=== PATIENT | female | born 1990 | race Caucasian/White ===

== ENCOUNTER 2021-01-06 12:08 | Observation (INO) ==
[2021-01-06 15:22] LABS: Candida DNA Not Detected (Not Detect); Gardnerella DNA Not Detected (Not Detect); Trichomonas DNA Not Detected (Not Detect)
== END 2021-01-06 14:40 | disposition home or self-care (01) ==
LOC: 1NENULAB
PROVIDERS: ADMIT Registered Nurse; ATTEND Registered Nurse

== ENCOUNTER 2021-01-08 21:54 | Inpatient (IN) ==
[2021-01-08] MEDS ORDERED: Metoclopramide 10 MG/2 ML VIAL IVP PRN (22:21)
[2021-01-08] MEDS ORDERED: Famotidine 20 MG/2 ML VIAL IVP PRN (22:21)
[2021-01-08] MEDS ORDERED: Naloxone 0.4 MG/ML INJ IVP PRN (22:21)
[2021-01-08 22:54] LABS: Basophils % 0.3 %; Eosinophils # 0.1 K/mcL (0.0-0.6); Hemoglobin 10.8 g/dL (11.5-15.4); Immature Granulocytes % 0.7 % (0-4); Lymphocytes % 17.6 %; Mean Corpuscular HGB Conc 34.8 g/dL (31.6-35.5); Mean Corpuscular Hemoglobin 32.2 pg (28.0-33.3); Mean Corpuscular Volume 92.5 fL (83.0-100.0); Mean Platelet Volume 12.1 fL (9.4-12.4); Monocytes # 0.9 K/mcL (0.0-1.3); Monocytes % 7.8 %; Neutrophils # 8.4 K/mcL (1.6-8.9); Platelet Count 149 K/mcL (140-400); Red Blood Count 3.35 M/mcL (3.82-4.97); Red Cell Distribution Width 12.9 % (11.5-14.5); Segmented Neutrophils % 72.6 %; White Blood Count 11.6 K/mcL (4.3-11.1)
[2021-01-08] MEDS ORDERED: miSOPROStoL 25 MCG TABLET PO PRN (23:26)
[2021-01-08 23:29] LABS: Amphetamine Screen,Urine Negative ng/mL (Cutoff=1000); Barbiturate Screen,Urine Negative ng/mL (Cutoff=200); Benzodiazepines Screen,Urine Negative ng/mL (Cutoff=200); Cannabinoid Screen,Urine Negative ng/mL (Cutoff = 50); Cocaine Screen,Urine Negative ng/mL (Cutoff= 300); Opiate Screen,Urine Negative ng/mL (Cutoff=300); Phencyclidine Screen,Urine Negative ng/mL (Cutoff=25)
[2021-01-08] MEDS ORDERED: Oxytocin 20 units/ LR 1000 mL 20 UNIT/1,000 ML BAG IVC SCH (23:30)
[2021-01-08] MEDS: Ringers Solution, Lactated 1,000 ML IVC SCH (23:45)
[2021-01-09 03:49] LABS: Influenza A PCR Negative (Negative); Influenza B PCR Negative (Negative); Resp. Syncytial Virus PCR Negative (Negative); SARS-CoV-2 by PCR (In House) Negative (Negative)
[2021-01-09] MEDS ORDERED: *HR* Nalbuphine 10 MG/ML AMPUL IV PRN (07:49)
[2021-01-09] MEDS: Ringers Solution, Lactated 1,000 ML IVC SCH ×2 (07:58→10:09)
[2021-01-09] MEDS ORDERED: *HR* FentaNYL (PF) 100 MCG/2 ML VIAL ONE (09:47)
[2021-01-09] MEDS ORDERED: Ropivacaine/PF 0.2% 20 ML VIAL ONE (09:47)
[2021-01-09] MEDS ORDERED: Epidural Premix (fent/bupiv) 110 ML EP ONE (09:49)
[2021-01-09] MEDS ORDERED: EPHEDrine 50 MG/ML VIAL IVP PRN (10:28)
[2021-01-09] MEDS ORDERED: Epidural Premix (fent/bupiv) 110 ML EP SCH (10:30)
[2021-01-09] MEDS ORDERED: Oxytocin 20 units/ LR 1000 mL 20 UNIT/1,000 ML BAG IVC SCH (15:36)
[2021-01-09] MEDS ORDERED: Acetaminophen 325 MG TABLET PO SCH (15:36)
[2021-01-09] MEDS ORDERED: Ondansetron ODT 4 MG TAB.RAPDIS SL PRN (15:36)
[2021-01-09] MEDS ORDERED: Lanolin 7 G OINT...G. TP PRN (15:36)
[2021-01-09] MEDS ORDERED: Benzocaine/Menthol 56 GM AEROSOL SPRAY TP PRN (15:36)
[2021-01-09 15:54] VITALS: O2SAT 98
[2021-01-09] MEDS ORDERED: Ibuprofen 600 MG TABLET PO SCH (16:40)
[2021-01-09 17:51] VITALS: BP 136/81; PULSE 90; TEMP 98.7
[2021-01-10] MEDS ORDERED: Prenatal Vit/FA 1 EACH TABLET PO SCH (09:00)
== END 2021-01-09 19:02 | disposition home or self-care (01) | DRG 806 ==
LOC: 1NENULAB 21:54 → 1NENUOBS 01-09 15:53
PROVIDERS: ADMIT Registered Nurse; ATTEND Registered Nurse